=== PATIENT | female | born 1990 | race Caucasian/White ===

== ENCOUNTER 2021-10-12 09:23 | Emergency (ER) | payer OTHER ==
[~2021-10-12] VITALS: Ht 165.1 cm; Wt 84.4 kg
[2021-10-12] MEDS ORDERED: PRENATABS RX T1 EACH PO (10:21)
[2021-10-12] MEDS ORDERED: CEPHALEXIN500 M1 PO (13:47)
== END 2021-10-12 14:05 | disposition home or self-care (01) ==
LOC: ER 09:23
DX: N39.0 Urinary tract infection, site not specified (principal)

== ENCOUNTER 2021-10-13 13:53 | Emergency (ER) | payer OTHER ==
[~2021-10-13] VITALS: Ht 165.1 cm; Wt 84.4 kg
[~2021-10-13 13:53] MED LIST: CEPHALEXIN500 M1 PO; PRENATABS RX T1 EACH PO
== END 2021-10-13 22:37 | disposition home or self-care (01) ==
LOC: ER 13:53
DX: O20.9 Hemorrhage in early pregnancy, unspecified (principal); O23.41 Unspecified infection of urinary tract in pregnancy, first trimester; N39.0 Urinary tract infection, site not specified; Z3A.10 10 weeks gestation of pregnancy; Z20.822 Contact with and (suspected) exposure to COVID-19

== ENCOUNTER 2022-05-03 08:45 | Inpatient (IN) | payer OTHER ==
[~2022-05-03] VITALS: Ht 165.1 cm; Wt 96.2 kg
== END 2022-05-05 14:06 | disposition home or self-care (01) | DRG 807 ==
LOC: LDR 08:45 → OB/GYN 17:33
PROVIDERS: ADMIT Specialist; ATTEND Specialist
PROC: 10E0XZZ Delivery of Products of Conception, External Approach (ICD-10-PCS; principal; 2022-05-03)
PROC: 0KQM0ZZ Repair Perineum Muscle, Open Approach (ICD-10-PCS; 2022-05-03)
PROC: 4A1HXCZ Monitoring of Products of Conception, Cardiac Rate, External Approach (ICD-10-PCS; 2022-05-03)
DX: O70.1 Second degree perineal laceration during delivery (principal); Z37.0 Single live birth; Z3A.38 38 weeks gestation of pregnancy; Z20.822 Contact with and (suspected) exposure to COVID-19